=== PATIENT | female | born 1945 | race Hispanic/Latino ===

== ENCOUNTER 2021-09-05 18:26 | Inpatient (IN) | payer MEDICARE, OTHER ==
[2021-09-05] MEDS ORDERED: Boostrix 0.5 ML (Tdap) VIAL ONE (18:54)
[2021-09-05] MEDS ORDERED: CEFAZOLIN 1 GM VIAL ONE ×2 (18:54→18:56)
[2021-09-05] MEDS ORDERED: Morphine 4 MG/ML VIAL ONE (18:54)
[2021-09-05] MEDS ORDERED: PROPOFOL 20 ML ONE (20:03)
[2021-09-05] MEDS ORDERED: Ondansetron PF 4 MG/2 ML Vial IVP PRN (21:11)
[2021-09-05] MEDS ORDERED: hydrALAZINE 20 MG/ML VIAL SLOW IVP PRN (21:11)
[2021-09-05] MEDS ORDERED: Sodium Chloride 0.9% 1,000 ML IV SCH (21:30)
[2021-09-05 22:02] LABS: Magnesium 1.8 mg/dL (1.6-2.6); Phosphorus 2.9 mg/dL (2.3-4.7)
[2021-09-05 22:15] LABS: PTT 29.1 sec (22.9-36.1); Prothrombin Time 13.3 sec (12.0-14.7)
[2021-09-05] MEDS ORDERED: Amlodipine 5 MG TAB PO SCH (23:00)
[2021-09-05] MEDS: Morphine 4 MG/ML VIAL SLOW IVP PRN (23:03)
[2021-09-06] MEDS: Acetaminophen 325 MG TAB PO SCH ×5 (00:24→23:41)
[2021-09-06 00:57] LABS: SARS-CoV-2 NAA Rapid Test Not Detected (NotDetected)
[2021-09-06] MEDS ORDERED: ceFAZolin Sodium/D5W 2 GM in Premix Bag 1 BAG IVPB SCH (04:00)
[2021-09-06] MEDS ORDERED: CEFAZOLIN 2 GM in Premix Bag 1 BAG IVPB SCH ×2 (04:00→12:00)
[2021-09-06] MEDS: Morphine 4 MG/ML VIAL SLOW IVP PRN (04:32)
[2021-09-06 05:28] LABS: #Eosinphils 0.1 thou/uL (0.0-0.7); #Lymphocytes 1.4 thou/uL (1.20-3.40); #Monocytes 0.5 thou/uL (0.11-0.59); %Basophils 0.5 % (0.0-1.0); %Eosinophils 1.3 % (0.0-10.0); %Lymphocytes 23.5 % (21.0-51.0); %Monocytes 7.7 % (0.0-10.0); %Neutrophils 67.1 % (42.0-75.0); Hemoglobin 10.2 g/dL (12.0-16.0); Mean Corpuscular HGB CONC 32.9 g/dL (32.0-36.0); Mean Corpuscular Hemoglobin 32.2 pg (27.0-31.0); Mean Corpuscular Volume 97.8 fL (78.0-98.0); Mean Platelet Volume 8.6 fL (7.4-10.4); Platelet Count 163 thou/uL (130-400); Red Blood Cell (RBC) Count 3.18 mill/uL (4.20-5.40)
[2021-09-06 05:50] LABS: Anion Gap 11 mmol/L (10-20); BUN (Urea Nitrogen) 18 mg/dL (9.8-20.1); Calc. Creatinine Clearance 0 mL/min (70-130); Calcium 7.9 mg/dL (7.8-10.44); Carbon Dioxide 22 mmol/L (23-31); Chloride 108 mmol/L (98-107); Glucose 104 mg/dL (83-110); Potassium 3.5 mmol/L (3.5-5.1); Sodium 137 mmol/L (136-145)
[2021-09-06] MEDS ORDERED: Fentanyl 100 MCG/2 ML VIAL ONE ×2 (07:26→09:51)
[2021-09-06] MEDS ORDERED: Lidocaine 1% (PF) 30 ML VIAL ONE (07:27)
[2021-09-06] MEDS ORDERED: Bupivacaine HCl 0.5%/Epinephrine 1:200,000/PF 30 ml Vial ONE (08:15)
[2021-09-06] MEDS: Famotidine 20 MG TAB PO SCH ×2 (09:22→20:46)
[2021-09-06] MEDS ORDERED: Labetalol HCl 100 MG/20 ML VIAL ONE (11:29)
[2021-09-06] MEDS: Ibuprofen 200 MG TAB PO SCH ×3 (12:42→23:40)
[2021-09-06] MEDS: ceFAZolin Sodium/D5W 2 GM in Premix Bag 1 BAG IVPB SCH ×2 (12:42→20:46)
[2021-09-07] MEDS: Ibuprofen 200 MG TAB PO SCH ×4 (05:39→23:44)
[2021-09-07] MEDS: Acetaminophen 325 MG TAB PO SCH ×4 (05:39→23:33)
[2021-09-07] MEDS: Famotidine 20 MG TAB PO SCH ×2 (08:49→20:31)
[2021-09-07] MEDS: traMADol HCl 50 MG TAB PO PRN (08:50)
[2021-09-07] MEDS: Acetaminophen/Codeine 30-300mg Tablet PO SCH ×3 (11:10→23:44)
[2021-09-07] MEDS ORDERED: Enoxaparin Sodium 40 MG/0.4 ML SYRINGE SC SCH (21:00)
[2021-09-08] MEDS: Acetaminophen/Codeine 30-300mg Tablet PO SCH ×2 (05:49→11:16)
[2021-09-08] MEDS: Acetaminophen 325 MG TAB PO SCH ×2 (05:50→11:17)
[2021-09-08] MEDS: Ibuprofen 200 MG TAB PO SCH ×2 (05:51→11:15)
[2021-09-08] MEDS: traMADol HCl 50 MG TAB PO PRN (08:58)
[2021-09-08] MEDS: Famotidine 20 MG TAB PO SCH (08:58)
[2021-09-08 12:07] VITALS: BP 154/76; TEMP 97.9
== END 2021-09-08 12:38 | disposition home or self-care (01) | DRG 512 ==
LOC: ERS 18:26 → SURG A 20:44
PROVIDERS: ADMIT Surgery; ATTEND Surgery
PROC: 0HBDXZZ Excision of Right Lower Arm Skin, External Approach (ICD-10-PCS; 2021-09-05)
PROC: 0H9DXZZ Drainage of Right Lower Arm Skin, External Approach (ICD-10-PCS; 2021-09-05)
PROC: 0PSH35Z Reposition Right Radius with External Fixation Device, Percutaneous Approach (ICD-10-PCS; principal; 2021-09-06)
PROC: 0PSK35Z Reposition Right Ulna with External Fixation Device, Percutaneous Approach (ICD-10-PCS; 2021-09-06)
DX: S52.571B Other intraarticular fracture of lower end of right radius, initial encounter for open fracture type I or II (principal); Z20.822 Contact with and (suspected) exposure to COVID-19; Z23 Encounter for immunization; W17.89XA Other fall from one level to another, initial encounter; I10 Essential (primary) hypertension; Z79.899 Other long term (current) drug therapy; S52.601B Unspecified fracture of lower end of right ulna, initial encounter for open fracture type I or II
CPT/HCPCS: 25605; 36415; 71045; 76000; 80048; 83735; 84100; 85025; 85610; 85730; 86850; 86900; 86901; 90471; 90715; 96365; 96375; 99152; C1713; J0690; J1650; J2001; J2270; J2405; J2704; J3010; J7050; U0002

== ENCOUNTER 2021-10-11 11:47 | Outpatient (CLI) | payer MEDICARE, OTHER ==
[2021-10-12 12:54] LABS: SARS-CoV-2 PCR by NAA Not Detected (NotDetected)
== END 2021-10-11 11:48 | disposition home or self-care (01) ==
LOC: LABBT 11:47
PROVIDERS: ATTEND Orthopaedic Surgery
DX: Z01.818 Encounter for other preprocedural examination (principal); S62.101A Fracture of unspecified carpal bone, right wrist, initial encounter for closed fracture; Z20.822 Contact with and (suspected) exposure to COVID-19
CPT/HCPCS: 93005; U0003; U0005; 93010

== ENCOUNTER 2021-10-16 12:06 | Day surgery (SDC) | payer MEDICARE, OTHER ==
[2021-10-11 13:37] VITALS: BMI 31.3
[2021-10-16] MEDS ORDERED: Fentanyl 100 MCG/2 ML VIAL ONE (12:30)
[2021-10-16] MEDS ORDERED: Propofol 1,000 MG/100 ML VIAL IV ONE (12:37)
[2021-10-16] MEDS ORDERED: Propofol 500 MG/50 ML VIAL ONE (12:37)
[2021-10-16] MEDS ORDERED: ceFAZolin 2 GM/Dextrose 50 ML IVPB ONE (12:58)
[2021-10-16] MEDS ORDERED: Lidocaine 1% PF 5 ML VIAL ONE (13:02)
[2021-10-16] MEDS ORDERED: Glycopyrrolate 0.2 MG/ML 5 ML SYRINGE ONE (13:02)
[2021-10-16] MEDS ORDERED: Ondansetron PF 4 MG/2 ML Vial ONE (13:02)
[2021-10-16] MEDS ORDERED: PROPOFOL 200 MG/20 ML VIAL ONE (13:02)
[2021-10-16] MEDS ORDERED: Dexamethasone 20 MG/5 ML VIAL ONE (13:02)
== END 2021-10-16 14:56 | disposition home or self-care (01) ==
LOC: SDC 12:06
PROVIDERS: ATTEND Orthopaedic Surgery
PROC: 0PP Upper Bones, Removal (ICD-10-PCS; principal; 2021-10-16)
DX: S52.571 Other intraarticular fracture of lower end of right radius (principal); W19.XXXD Unspecified fall, subsequent encounter
CPT/HCPCS: J0690; J2704; J3010